=== PATIENT | female | born 1960 | race Caucasian/White ===

== ENCOUNTER 2020-11-11 10:35 | Inpatient (IN) | payer MEDICARE, SELFPAY ==
[2020-11-11] VITALS (11 sets, daily range): BP systolic 105–155; BP diastolic 51–96; PULSE 77–90; RESP 13–20; TEMP 36.7–37.1; O2SAT 97–100; BMI 28.1
--- NOTE | ~2020-11-11 | CT_ITS ---
EXAMINATION: CT brain wo con INDICATION: Unsteady gait COMPARISON: None TECHNIQUE: Standard unenhanced head CT. The dose-length product (DLP) was 605.33 mGy-cm. The mA was a djusted according to patient size. Iterative reconstruction technique was employed. FINDINGS: There is no intracranial hemorrhage, acute infarction, or abnormal mass lesion. The ventric les are normal. There is no abnormal mass effect or midline shift. The colmenares-white matter differentiat ion is normal. The basal cisterns are patent. Surgical changes noted in the superior aspect of the ri ght orbit. There is mild mucosal thickening of the paranasal sinuses. IMPRESSION: 1. No acute intracranial abnormality. Reviewed, dictated and finalized at location B.
--- NOTE | ~2020-11-11 | CT_ITS ---
EXAMINATION: CT diagnostic chest wo con EXAM DATE: 11/12/2020 17:27 INDICATION: Abnormal chest x-ray. Tumor of the breast. TECHNIQUE: Spiral CT of the chest without contrast. Axial, coronal and sagittal images of the chest were reviewed. Coronal maximum intensity pixel images of chest reviewed. The dose-length product ( DLP) for this examination was 179.63 mGy-cm. The exposure was tailored according to patient size (au to mA exposure control), and iterative reconstruction (ASIR) was used as additional dose reduction te chnique. Comparison is made to prior examination from 12/27/2015. FINDINGS: Patient's previously seen right-sided portacatheter has been removed. There is catheter fra gment in a right lower lobe anterior segmental pulmonary artery. Again there is biapical scarring and lobular pleural-based soft tissue extending from the left lung a pex anteriorly inferiorly. This was previously biopsied in 2016, correlate with histology. Appearance not significantly changed consistent with benign histology. There are no pleural or pericardial effusions. Tracheobronchial tree is patent. There is no media stinal, hilar or axillary lymphadenopathy. There is no pneumothorax. Heart normal in size. No e vidence of coronary arterial calcification. Upper abdomen is unremarkable. There is mild thoracic spondylosis without osteoblastic or osteolytic lesions identified. IMPRESSION: 1. Embolized catheter fragment in right lower lobe anterior segmental pulmonary artery. 2. Stable apical scarring, pleural-based opacities. Reviewed, dictated and finalized at location A. IMPRESSION: 1. Embolized catheter fragment in right lower lobe anterior segmental pulmonar y artery. 2. Stable apical scarring, pleural-based opacities.
--- NOTE | ~2020-11-11 | XR_ITS ---
EXAMINATION: XR chest 2V DATE: 11/11/2020 12:00 INDICATION: Weakness. Frequent falls. Difficulty walking. TECHNIQUE: frontal and lateral views of the chest were obtained. COMPARISON: Chest radiograph dated 01/21/2016 FINDINGS: The prior central venous port catheter is been removed. There is retained catheter fragment which is embolized into a likely right lower or middle lobar pulmonary artery. No focal airspace opacities, pu lmonary edema, pleural effusion or pneumothorax. The cardiomediastinal silhouette is normal. Moderate thoracic spondylosis. IMPRESSION: 1. Embolized catheter fragment within a pulmonary artery of the right lower or middle lobe. No other acute cardiopulmonary disease. Reviewed, dictated and finalized at location A.
--- NOTE | 2020-11-11 11:05 | ECG_ITS ---
Measurements Intervals [place] Rate: 79 P: 49 OK: 123 QRS: 5 QRSD: 96 T: 59 QT: 378 QTc: 434 Interpretive Statements SINUS RHYTHM BASELINE ARTIFACT- I, II, III, AVR, AVL, AVF, V1, V3-V6 NORMAL ECG Electronically Signed On 11-11-2020 11:31:28 CDT by Sunny Hunter D.O.
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
[2020-11-11 12:58] LABS: Basophils Percent Auto 0.9 % (0.2-1.2); Eosinophils Absolute Auto 0.2 K/mm3 (0-0.3); Hematocrit 35.6 % (37.0-47.0); Hemoglobin 11.4 g/dL (12.0-15.0); Immature Granulocyte Absolute 0.01 K/mm3 (0.00-0.031); Immature Granulocyte Percent A 0.2 % (0-0.5); Lymphocytes Absolute Auto 1.01 K/mm3 (0.9-3.2); Lymphocytes Percent Auto 23.7 % (18.3-44.2); Mean Corpuscular Volume 96.7 fl (80-100); Mean Platelet Volume 8.7 fl (7.4-10.4); Monocytes Absolute Auto 0.5 K/mm3 (0.1-0.6); Neutrophils Absolute Auto 2.6 K/mm3 (1.3-6.7); Neutrophils Percent Auto 60.2 % (45.5-73.1); Platelet Count Result 197 k/mm3 (150-375); Red Blood Count 3.68 M/mm3 (4.2-5.4); Red Cell Distribution Width 13.6 % (11.5-14.5); White Blood Count 4.3 K/mm3 (4.5-10.0)
[2020-11-11 13:00] LABS: Add Urine Microscopic? YES; Appearance Urine Clear (Clear); Bilirubin Urine Negative (Negative); Blood Urine 1+ (Negative); Color Urine Yellow (Yellow); Glucose Urine UA Negative (Negative); Ketones Urine Negative (Negative); Leukocyte Esterase Ur 1+ LEU/UL (Negative); Nitrate Urine Negative (Negative); Protein Urine Negative (Negative); Specific Grav Ur 1.012 (1.001-1.035); Squamous Epithelial Cell Urine Few /hpf (Few); Urobilinogen Urine Negative mg/dL (<2.0)
[2020-11-11 13:08] LABS: Prothrombin Time 13.4 Seconds (11.1-14.7)
[2020-11-11 13:09] LABS: Partial Thromboplastin Time 24.6 SECONDS (22.3-36.8)
[2020-11-11 13:20] LABS: Alanine Aminotransferase 12 U/L (4-35); Albumin Level 4.4 g/dL (3.5-5.1); Alkaline Phosphatase 123 U/L (38-126); Anion Gap 10 mmol/L (8-16); Aspartate Amino Transferase 22 U/L (14-36); Bilirubin,Total 0.3 mg/dL (0.2-1.3); Blood Urea Nitrogen 12 mg/dL (7-17); Calcium 9.1 mg/dL (8.4-10.2); Carbon Dioxide 28 mmol/L (22-30); Chloride 103 mmol/L (98-107); Estimated CRCL calculation 61 ml/min; Estimated Glomerular Filt Rate > 60; Glucose 85 mg/dL (65-105); Potassium 4.1 mmol/L (3.4-5.0); Sodium 141 mmol/L (137-145)
[2020-11-11 13:24] LABS: Phenytoin Dilantin 29 ug/mL (10-20)
[2020-11-11] MEDS: SODIUM CHLORIDE 0.9% IV 1,000 ML 999 ML IV CONT (14:13)
--- NOTE | 2020-11-11 16:05 | ADMGEN ---
This patient, Dion Duong, was admitted to [facility] Surg Room 316-01. Patient/family oriented to hospital policies and general routines including ID bracelet, bed and alarms, visiting hours, pain management, procedures, bathroom and other care routines, personal items, smoking policy, room service/diet, and visiting hours. Information on how to activate the Rapid Response Team has been discussed. Patient/Family are encouraged to report perceived risks to care and to ask questions if they do not understand what they are told or what they should do.
[2020-11-11] MEDS: SODIUM CHLORIDE 0.9% IV 1,000 ML 125 ML IV CONT (17:13)
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
[2020-11-12] VITALS (10 sets, daily range): BP systolic 129–141; BP diastolic 70–75; PULSE 77–98; RESP 17–20; TEMP 36.2–36.7; O2SAT 98–100
[2020-11-12] MEDS: SODIUM CHLORIDE 0.9% IV 1,000 ML 125 ML IV CONT ×2 (01:12→08:40)
[2020-11-12 06:23] LABS: Basophils Percent Auto 0.7 % (0.2-1.2); Eosinophils Absolute Auto 0.2 K/mm3 (0-0.3); Eosinophils Percent Auto 4.8 % (0-4.4); Hematocrit 33.5 % (37.0-47.0); Hemoglobin 10.9 g/dL (12.0-15.0); Immature Granulocyte Absolute 0.01 K/mm3 (0.00-0.031); Immature Granulocyte Percent A 0.2 % (0-0.5); Lymphocytes Absolute Auto 0.82 K/mm3 (0.9-3.2); Lymphocytes Percent Auto 18.6 % (18.3-44.2); Mean Corpuscular HGB Conc 32.5 g/dl (32-36); Mean Corpuscular Hemoglobin 31.5 pg (26-34); Mean Corpuscular Volume 96.8 fl (80-100); Mean Platelet Volume 8.7 fl (7.4-10.4); Monocytes Absolute Auto 0.5 K/mm3 (0.1-0.6); Monocytes Percent Auto 11.8 % (2.6-8.5); Neutrophils Absolute Auto 2.8 K/mm3 (1.3-6.7); Neutrophils Percent Auto 63.9 % (45.5-73.1); Platelet Count Result 171 k/mm3 (150-375); Red Blood Count 3.46 M/mm3 (4.2-5.4); Red Cell Distribution Width 13.6 % (11.5-14.5); White Blood Count 4.4 K/mm3 (4.5-10.0)
[2020-11-12 06:35] LABS: Anion Gap 7 mmol/L (8-16); Blood Urea Nitrogen 11 mg/dL (7-17); Calcium 8.6 mg/dL (8.4-10.2); Carbon Dioxide 26 mmol/L (22-30); Chloride 109 mmol/L (98-107); Estimated CRCL calculation 69 ml/min; Estimated Glomerular Filt Rate > 60; Glucose 83 mg/dL (65-105); Potassium 4.2 mmol/L (3.4-5.0); Sodium 142 mmol/L (137-145)
[2020-11-12] MEDS: ENOXAPARIN 40 MG/0.4 ML SYRINGE SUB-Q (08:40)
--- NOTE | 2020-11-12 14:49 | PM.IMPN ---
Progress Note: A&P Assessment and Plan (1) Dilantin toxicity: Code(s): T42.0X1A - Poisoning by hydantoin derivatives, accidental (unintentional), initial encounter Status: Acute Assessment and Plan: PATIENT IS PLACED IN OBSERVATION SUSPECT DILANTIN TOXICITY PATIENT HAS BEEN TAKING EXTRA DILANTIN WILL HOLD DILANTIN WILL OBTAIN DILANTIN LEVEL PT OT (2) Seizures: Code(s): R56.9 - Unspecified convulsions Status: Acute Assessment and Plan: HOLDING DILANTIN CONTINUE TO MONITOR (3) Anemia: Code(s): D64.9 - Anemia, unspecified Status: Acute Assessment and Plan: stable counts continue monitoring (4) Abnormal chest x-ray: Code(s): R93.89 - Abnormal findings on diagnostic imaging of other specified body structures Status: Acute Assessment and Plan: chest x-ray with retained catheter fragment which was embolized into a likely right lower middle lobar pulmonary artery. Incidental finding he does not have any symptoms related to this. Reviewed her older chest x-rays which sedated back from 2016 which is seen to have a port, the last 1 seeing a kink. I will get a CT chest diagnostic to further evaluate this. 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 She denies any shortness of breath or chest pain. No fevers chills. She has been having for the sensation in her head and has been falling. No nausea vomiting diarrhea abdominal pain. No loss of consciousness Review of Systems Review of Systems: Narrative: - CONSTITUTIONAL: Denies weight loss, fever and chills. - HEENT: Denies changes in vision and hearing - RESPIRATORY: Denies SOB and cough. - CV: Denies palpitations and CP. - GI: Denies abdominal pain, nausea, vomiting and diarrhea. - : Denies dysuria and urinary frequency. - MSK: Denies myalgia and joint pain. - SKIN: Denies rash and pruritus. - NEUROLOGICAL: Denies headache and syncope. reports dizziness and frequent falls - PSYCHIATRIC: Denies recent changes in mood. Denies anxiety and depression. All systems reviewed & are unremarkable except as noted in HPI and below Neurologic: Reports weakness Exam Narrative: Exam Narrative: Const: cooperative, comfortable, no acute distress, oriented x3 HENMT: Head: normal to inspection, normocephalic and atraumatic Eyes: General: dysmorphic ( RIGHT EYE PTOSIS) Neck: Neck: normal visual inspection, full ROM Resp: clear to auscultation bilaterally no respiratory distress Cardio: Jugular venous distension: no JVD Rate: regular rate Rhythm: regular rhythm Heart sounds: S1 normal heart sound present and S2 normal heart sound present GI: soft nondistended, nontender, no organomegaly Skin: Rashes: no rashes Wounds: no wounds Neuro: General: patient oriented x3 and CN's II-XI intact bilaterally Extrem: General: normal to inspection, full ROM, no joint enlargement and no pedal edema Objective Data Vital Signs Vital Signs: Vital Signs - 24 hr 11/11/20 15:46 11/11/20 16:30 11/11/20 16:39 Temperature 98.1 F Pulse Rate 82 81 86 Respiratory Rate 20 16 Blood Pressure 121/73 126/65 Pulse Oximetry 100 100 11/11/20 20:10 11/11/20 22:00 11/12/20 00:00 Temperature 98.2 F
[2020-11-13] VITALS (9 sets, daily range): BP systolic 113–136; BP diastolic 55–86; PULSE 75–81; RESP 16–20; TEMP 36.1–37.4; O2SAT 99–100
[2020-11-13] MEDS: ENOXAPARIN 40 MG/0.4 ML SYRINGE SUB-Q (08:24)
--- NOTE | 2020-11-13 12:24 | PM.DS ---
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 dilantin level on admission elecvated at 29. phentyoin held. labs all other unremarkable. she was taking extra dilantin since past few weeks. with phenytoin pharmacokinetics, will resrart phenytoin at her home dose 200 mg in am and 100 in the evening. monitor phentyoin level as opbasis. in 3 days then in 1 week after that. fu with PCP in 1 week. Disussed with sister who is in [place] in detail. will order PT/OT home health at [facility] and nursing to do the blood work as well. (2) Seizures: Code(s): R56.9 - Unspecified convulsions Status: Acute Assessment and Plan: HOLDING DILANTIN CONTINUE TO MONITOR resume dilantin at home dose, (3) Anemia: Code(s): D64.9 - Anemia, unspecified Status: Acute Assessment and Plan: stable counts continue monitoring (4) Abnormal chest x-ray: Code(s): R93.89 - Abnormal findings on diagnostic imaging of other specified body structures Status: Acute Assessment and Plan: chest x-ray with retained catheter fragment which was embolized into a likely right lower middle lobar pulmonary artery. Incidental finding he does not have any symptoms related to this. Reviewed her older chest x-rays which sedated back from 2016 which is seen to have a port, the last 1 seeing a kink. likely a chronic finding. ct chest done which showed the catheter in the right segmental pumonary artery. family is aware of this as well. will monitor and no intervention suggested as she is asymptomatic. (5) Hemiplegia affecting left nondominant side: Code(s): G81.94 - Hemiplegia, unspecified affecting left nondominant side Status: Acute Assessment and Plan: chronic no change. pt/ot to see as home based therapy as well. (6) Other senior living (current) drug therapy: Code(s): Z79.899 - Other buttermilk drier operator (current) drug therapy Status: Acute (7) Psoriasis: Code(s): L40.9 - Psoriasis, unspecified Status: Acute (8) History of breast cancer: Code(s): Z85.3 - Personal history of malignant neoplasm of breast Status: Acute Assessment and Plan: underwent chemo therapy in the past in remission Time Spent with Patient Time attestation: Total time spent providing and/or coordinating discharge services:50 mins Exam Narrative: Exam Narrative: Const: cooperative, comfortable, no acute distress, oriented x3 HENMT: Head: normal to inspection, normocephalic and atraumatic Eyes: General: dysmorphic ( RIGHT EYE PTOSIS) Neck: Neck: normal visual inspection, full ROM Resp: clear to auscultation bilaterally no respiratory distress Cardio: Jugular venous distension: no JVD Rate: regular rate Rhythm: regular rhythm Heart sounds: S1 normal heart sound present and S2 normal heart sound present GI: soft nondistended, nontender, no organomegaly Skin: Rashes: no rashes Wounds: no wounds Neuro: General: patient oriented x3 and CN's II-XI intact
[2020-11-13 12:39] LABS: Phenytoin Dilantin 23 ug/mL (10-20)
--- NOTE | 2020-11-13 15:17 | PM.IMPN ---
Progress Note: A&P Assessment and Plan (1) Abnormal chest x-ray: Code(s): R93.89 - Abnormal findings on diagnostic imaging of other specified body structures Status: Acute Assessment and Plan: chest x-ray with retained catheter fragment which was embolized into a likely right lower middle lobar pulmonary artery. Incidental finding he does not have any symptoms related to this. Reviewed her older chest x-rays which sedated back from 2016 which is seen to have a port, the last [address] chest done which confirmed the location discussed with the family which she states that this is been a chronic issue and had remained asymptomatic and hands left alone. (2) Anemia: Code(s): D64.9 - Anemia, unspecified Status: Acute Assessment and Plan: stable counts continue monitoring (3) Dilantin toxicity: Code(s): T42.0X1A - Poisoning by hydantoin derivatives, accidental (unintentional), initial encounter Status: Acute Assessment and Plan: PATIENT IS PLACED IN OBSERVATION SUSPECT DILANTIN TOXICITY PATIENT HAS BEEN TAKING EXTRA DILANTIN WILL HOLD DILANTIN WILL OBTAIN DILANTIN LEVEL PT OT Free Dilantin level still pending as it is a send out discuss with the lab this morning Will check a level of Dilantin today which came back still elevated at 23 will recheck the level in the morning tomorrow restart phenytoin when the level goes down to a therapeutic level Needs close monitoring of phenytoin level at the time of discharge and close follow-up with primary care Discussed this with her sister Chelo over the phone today. 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 Denies any issues overnight. He denies feeling any dizziness. She has been walking with therapy and doing well. no fever chills. Phenytoin level still elevated this afternoon. Review of Systems Review of Systems: All systems reviewed & are unremarkable except as noted in HPI and below Exam Narrative: Exam Narrative: Const: cooperative, comfortable, no acute distress, oriented x3 HENMT: Head: normal to inspection, normocephalic and atraumatic Eyes: General: dysmorphic ( RIGHT EYE PTOSIS) Neck: Neck: normal visual inspection, full ROM Resp: clear to auscultation bilaterally no respiratory distress Cardio: Jugular venous distension: no JVD Rate: regular rate Rhythm: regular rhythm Heart sounds: S1 normal heart sound present and S2 normal heart sound present GI: soft nondistended, nontender, no organomegaly Skin: Rashes: no rashes Wounds: no wounds Neuro: General: patient oriented x3 and CN's II-XI intact bilaterally Extrem: General: normal to inspection, full ROM, no joint enlargement and no pedal edema Objective Data Vital Signs Vital Signs: Vital Signs - 24 hr 11/12/20 16:00 11/12/20 20:00 11/12/20 22:00 Temperature 97.2 F L Pulse Rate 81 80 80 Respiratory Rate 18 18 Blood Pressure 129/70 Pulse Oximetry 98 98 11/13/20 00:00 11/13/20 04:00 11/13/20 05:45 Temperature 97.1 F L Pulse Rate 76 76 76 Respiratory Rate 18 Blood Pressure 120/55 L Pulse Oximetry 99 11/13/20 08:00 Temperature Pulse Rate 75 Respiratory Rate Blood Pressure Pulse Oximetry Intake/Output Intake/Output: Intake & Output 11/10/20 11/11/20 11/12/20 11/13/20 23:59 23:59 23:59 23:59 Intake Total 1680 4010 240 Balance 1680 4010 240 Meds/Results Medications: Active Medications Generic Name Dose Route Start Last Admin Trade Name Freq PRN Reason Stop Dose Admin Enoxaparin Sodium 40 mg 11/12/20 09:00 11/13/20 08:24 Enoxaparin 40 Mg/0.4 Ml Sy
[2020-11-14] VITALS: PULSE 84
[2020-11-14 04:00] VITALS: PULSE 90
[2020-11-14 04:57] VITALS: BP 131/69; PULSE 86; RESP 16; TEMP 36.1; O2SAT 100
[2020-11-14 08:00] VITALS: PULSE 77
[2020-11-14] MEDS: ENOXAPARIN 40 MG/0.4 ML SYRINGE SUB-Q (08:32)
[2020-11-14 08:36] LABS: Alanine Aminotransferase 11 U/L (4-35); Alkaline Phosphatase 111 U/L (38-126); Anion Gap 7 mmol/L (8-16); Aspartate Amino Transferase 20 U/L (14-36); Bilirubin,Total 0.3 mg/dL (0.2-1.3); Blood Urea Nitrogen 13 mg/dL (7-17); Calcium 9.2 mg/dL (8.4-10.2); Carbon Dioxide 26 mmol/L (22-30); Chloride 108 mmol/L (98-107); Estimated CRCL calculation 69 ml/min; Estimated Glomerular Filt Rate > 60; Glucose 82 mg/dL (65-105); Sodium 141 mmol/L (137-145)
[2020-11-14 08:37] LABS: Phenytoin Dilantin 18 ug/mL (10-20)
[2020-11-14 10:03] LABS: Basophils Percent Auto 0.9 % (0.2-1.2); Eosinophils Absolute Auto 0.3 K/mm3 (0-0.3); Eosinophils Percent Auto 7.4 % (0-4.4); Hematocrit 36.9 % (37.0-47.0); Hemoglobin 11.7 g/dL (12.0-15.0); Immature Granulocyte Absolute 0.01 K/mm3 (0.00-0.031); Immature Granulocyte Percent A 0.3 % (0-0.5); Lymphocytes Absolute Auto 0.94 K/mm3 (0.9-3.2); Mean Corpuscular HGB Conc 31.7 g/dl (32-36); Mean Corpuscular Hemoglobin 31.1 pg (26-34); Mean Corpuscular Volume 98.1 fl (80-100); Monocytes Absolute Auto 0.4 K/mm3 (0.1-0.6); Neutrophils Absolute Auto 1.8 K/mm3 (1.3-6.7); Neutrophils Percent Auto 52.4 % (45.5-73.1); Platelet Count Result 201 k/mm3 (150-375); Red Blood Count 3.76 M/mm3 (4.2-5.4); Red Cell Distribution Width 13.5 % (11.5-14.5); White Blood Count 3.4 K/mm3 (4.5-10.0)
[2020-11-14 11:07] LABS: Phenytoin Dilantin Free 2.7 mg/L (1.0-2.0)
== END 2020-11-14 14:50 | disposition home health service (06) | DRG 918 ==
LOC: ANHED 11:14 → ANH3MEDSUR 14:38
PROVIDERS: Internal Medicine; Admitting Provider Family Medicine; Emergency Provider General Practice; PCP Internal Medicine; Visit Provider Internal Medicine
DX: T42.0X1A Poisoning by hydantoin derivatives, accidental (unintentional), initial encounter (principal); G81.94 Hemiplegia, unspecified affecting left nondominant side; G40.89 Other seizures; Z87.820 Personal history of traumatic brain injury; D64.9 Anemia, unspecified; L40.9 Psoriasis, unspecified; Z79.899 Other long term (current) drug therapy; Z85.3 Personal history of malignant neoplasm of breast; Z87.891 Personal history of nicotine dependence; R93.89 Abnormal findings on diagnostic imaging of other specified body structures
CPT/HCPCS: 36415; 70450; 71046; 71250; 80048; 80053; 80185; 80186; 81001; 85025; 85610; 85730; 93005; 96360; 96361; 96372; 97110; 97116; 97161; 97165; 97535; 99285; G0378; J1650; J7030

== ENCOUNTER 2020-12-16 09:51 | Outpatient (CLI) | payer MEDICARE, SELFPAY ==
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
== END 2020-12-16 09:52 | disposition home or self-care (01) ==
PROVIDERS: PCP Internal Medicine; Visit Provider Psychiatry & Neurology Neurology
DX: R56.9 Unspecified convulsions (principal); G93.0 Cerebral cysts; G31.89 Other specified degenerative diseases of nervous system
CPT/HCPCS: 70551

== ENCOUNTER 2021-04-16 10:02 | Outpatient (CLI) | payer MEDICARE, SELFPAY ==
--- NOTE | ~2021-04-16 | XR_ITS ---
XR knee RT 3V 04/16/2021 10:47 Indication: Right knee instability Procedure: 3 views right knee Comparison: 03/02/2011 Findings: There is moderate tricompartment osteoarthritis of the right knee. No acute fracture, sublu xation or dislocation. Small joint effusion. No foreign bodies. Impression: 1: Moderate tricompartment osteoarthritis of the right knee. Reviewed, dictated and finalized at location B. PHONE SUPERVISOR Impression: 1: Moderate tricompartment osteoarthritis of the right knee.
== END 2021-04-16 10:03 | disposition home or self-care (01) ==
PROVIDERS: PCP Internal Medicine; Visit Provider Nurse Practitioner
DX: M17.11 Unilateral primary osteoarthritis, right knee (principal)
CPT/HCPCS: 73562

== ENCOUNTER 2025-01-24 13:50 | Outpatient (CLI) | payer MEDICARE, SELFPAY ==
--- OUTSIDE RECORDS SUMMARY | 2025-01-24 13:30 | XMS_ITS | Encounter Summary ---
Author Organization [facility] ARVIN Baltazar [facility] Address [address] [place] [address] Care Team Providers Care Grounds Manager Name Role Phone Roddy Chong DO Primary Care Provider [phone] Reason for Referral * Radiology Services (Routine) - Authorized Specialty Diagnoses / Procedures Referred By Mariela carbajal Referred To Contact Diagnoses History of left breast cancer Encounter for screening mammogram for malignant neoplasm of breast Procedures MAMMO 3D JEFFERSON SCREEN BILAT W OR WO CAD CHG SCREENING MAMMOGRAPHY BI 2-VIEW BREAST INC CAD CHG SCREENING DIGITAL BREAST TOMOSYNTHESIS BI Yolie Lipscomb MD [address] [place] [phone] Phone: tel: fax: Referral ID Status Reason Start Date Expiration Date Visits Requested Visits Authorized [id number] Authorized CRS to Schedule 01/24/2025 02/24/2026 1 1 * Radiology Services (Routine) - Authorized Specialty Diagnoses / Procedures Referred By Mariela carbajal Referred To Contact Diagnoses History of left breast cancer Osteopenia of multiple sites Procedures XR DEXA BONE DENSITY AXIAL 1 OR MORE SITES Yolie Lipscomb MD [address] [place] [phone] Phone: tel: fax: Referral ID Status Reason Start Date Expiration Date Visits Requested Visits Authorized [id number] Authorized CRS to Schedule 01/24/2025 02/24/2026 1 1 Encounter Details Date Type Department Care Team (Late st Contact Info) Description 01/24/2025 1:30 PM CDT Office Visit [facility] [address] [place] [address] Yolie Lipscomb MD [address] [place] [address] History of left breast cancer (Primary Dx); Osteopenia of multiple sites; Neoplasm of left breast, regional lymph node staging category pN0 per [place] Joint Committee on Cancer Staging Guidelines, 7th edition (CMS/HCC); Encounter for screening mammogram for malignant neoplasm of breast Social History Tobacco Use Types Packs/Day Years Used Date Smoking Tobacco: Former Cigarettes 1 30 0 01/24/1985 - 01/24/2015 Smokeless Tobacco: Never Alcohol Use Standard Drinks/Week Comments Never 0 (1 standard drink = 0.6 oz pur e alcohol) Comments Unknown Sex and Gender Information Value Date Recorded Sex Assigned at Not on file Legal Sex Female 3:25 PM CDT Gender Identity Not on file Sexual Orientation Not on file documented as of this encounter Last Filed Vital Signs Vital Sign Reading Time Taken Comments Blood Pressure 145/81 01/24/2025 1:05 PM CDT Pulse 81 01/24/2025 1:05 PM CDT Temperature 36.2 C (97.2 F) 01/24/2025 1:05 PM CDT Respiratory Rate 16 01/24/2025 1:05 PM CDT Oxygen Saturation 96% 01/24/2025 1:05 PM CDT Inhaled Oxygen Concentration - - Weight 76.2 kg (168 lb) 01/24/2025 1:05 PM CDT Height 157.5 cm (5' 2) 01/24/2025 1:05 PM CDT Body Mass Index 30.73 01/24/2025 1:05 PM CDT documented in this encounter Plan of Treatment Upcoming Encounters Date Type Department Care Team (Late st Contact Info) Description 03/07/2025 4:30 PM CDT Office Visit [facility] Oncology and Hematology [place] [address] [place] [address] Klaus Colón MD [address] [facility] [address] [place] [address] Scheduled Orders Name Type Priority Associated Diagnoses Orde r Schedule CBC WITH DIFFERENTIAL Lab Stat History of left breast cancer Expected: 01/24/2025, Expires: 01/24/2026 COMPREHENSIVE METABOLIC PANEL Lab Stat History of left breast cancer Expected: 01/24/2025, Expires: 01/24/2026 CANCER ANTIGEN 15-3 Lab Routine History of left breast cancer Expected: 01/24/2025, Expires: 01/24/2026 XR DEXA BONE DENSITY AXIAL 1 OR MORE SITES Imaging Routine History of left breast cancer Osteopenia of multiple sites Expected: 01/24/2025, Expires: 01/24/2026 MAMMO 3D JEFFERSON SCREEN BILAT W OR WO CAD Imaging Routine History of left breast cancer Encounter for screening mammogram for malignant neoplasm of breast Expected: 01/24/2025, Expires: 07/24/2026 documented as of this encounter Visit Diagnoses Diagnosis History of left breast cancer- Primary Osteopenia of multiple sites Neoplasm of left breast, regional lymph node staging category pN0 per [place] Joint Committee on Cancer Staging Guidelines, 7th edition (CMS/HCC) Encounter for screening mammogram for malignant neoplasm of breast Other screening mammogram documented in this encounter Care Teams Grounds Manager Relationship Specialty Start Date End Date Roddy Chong DO [address] [facility] [address] [place] [address] PCP - General Internal Medicine 01/24/25 documented as of this encounter
[2025-01-24 14:12] LABS: Hematocrit 36.6 % (37.0-47.0); Hemoglobin 11.7 g/dL (12.0-15.0); Immature Granulocyte Percent A 0.0 % (0-0.5); Lymphocytes Absolute Auto 1.08 K/mm3 (0.9-3.2); Mean Corpuscular HGB Conc 32.0 g/dl (32-36); Mean Corpuscular Hemoglobin 32.5 pg (26-34); Mean Corpuscular Volume 101.7 fl (80-100); Nucleated Red Blood Cells Absolute Auto 0.000 K/mm3 (0.0-0.012); Nucleated Red Blood Cells Perc 0.0 % (0.0-0.2); Platelet Count Result 193 k/mm3 (150-375); Red Blood Count 3.60 M/mm3 (4.2-5.4); White Blood Count 4.0 K/mm3 (4.5-10.0)
--- OUTSIDE RECORDS SUMMARY | 2025-01-24 14:28 | XMS_ITS | Clinical Summary ---
Author Organization [facility] Tristian solano Angie Address [address] [place] [address] Care Team Providers Care Burglar Alarm Mechanic Name Role Phone Roddy Chong DO Primary Care Provider [phone] Allergies No known active allergies Medications atorvastatin (LIPITOR) 10 mg tablet Take 10 mg by mouth daily at bedtime. 12/24/2024 Active folic acid (FOLVITE) 1 mg tablet Take 1 Tablet by mouth daily. 12/07/2024 Active letrozole (FEMARA) 2.5 mg tablet Take 1 Tablet by mouth daily. 12/28/2024 Active methotrexate (RHEUMATREX) 2.5 mg Tablet Take 2.5 mg by mouth. 01/22/2025 Active levETIRAcetam (KEPPRA) 750 mg Tablet Take 750 mg by mouth 2 times daily. Active multivitamin (DAILY-JOSELYN) tablet Take 1 Tablet by mouth daily. Active lysine (L-Lysine) 500 mg tablet Take 1,000 mg by mouth daily. Active CALCIUM CARBONATE ORAL Take by mouth. Active letrozole (FEMARA) 2.5 mg tablet Take 1 Tablet (2.5 mg) by mouth daily. 90 Tablet 3 01/24/2025 Active Active Problems Problem Noted Date Diagnosed Date Osteopenia of multiple sites 01/24/2025 History of left breast cancer 01/24/2025 Neoplasm of left breast, reg ional lymph node staging category pN0 per [place] Joint Committee on Cancer Staging Guidelines, 7th edition 01/24/2025 Encounters Date Type Department Care Team Description 01/24/2025 1:30 PM CDT Office Visit [facility] Oncology and Hematology - [place] [address] [place] [address] Yolie Lipscomb MD History of left breast cancer (Primary Dx); Osteopenia of multiple sites; Neoplasm of left breast, regional lymph node staging category pN0 per [place] Joint Committee on Cancer Staging Guidelines, 7th edition (CMS/HCC); Encounter for screening mammogram for malignant neoplasm of breast 12/12/2024 External Device Data STL ABSTRACTION Provider, Abstract 12/12/2024 External Device Data STL ABSTRACTION Provider, Abstract 12/12/2024 External Device Data STL ABSTRACTION Provider, Abstract 12/05/2024 Telephone [facility] Oncology and [facility] [address] [place] [address] Klaus Colón MD Medication Questions from Last 3 Months Social History Tobacco Use Types Packs/Day Years [...] on file Sexual Orientation Not on file Last Filed Vital Signs Vital Sign Reading [...] Mass Index 30.73 01/24/2025 1:05 PM CDT Plan of Treatment Upcoming Encounters Date Type Department Care Team (Late st Contact Info) Description 03/07/2025 4:30 PM CDT Office Visit [facility] Oncology and Hematology [facility] [address] [place] [address] Klaus Colón MD [address] [facility] [address] [place] [address] Health Maintenance Due Date Last Done Comments DTAP/TDAP/TD VACCINES (1 - Tdap) 1981 HPV/Cotest (21-29) 1983 CERVICAL CANCER SCREENING 1992 HPV/Cotest (30-65) 1992 PAP SMEAR 1992 BREAST CANCER SCREENING 2002 COLORECTAL SCREENING 2007 Colorectal Cancer Screening 2007 FIT-DNA Q 3 years 2007 FIT/FOBT Q 1 year 2007 Flex Sig/CT Colonography Q 5 years 2007 ZOSTER VACCINE (1 of 2) 2012 [place] Preventative Visit/Annual Wellness Visit 05/17/2024 INFLUENZA VACCINE (#1) 2024 8, 02/27/2017, 03/27/2016, Additional history exists RSV VACCINE (60+ or ) (1 - 1-dose 75+ series) 2037 Insurance Care Teams Burglar Alarm Mechanic Relationship Specialty Start Date End Date Roddy Chong DO [address] [facility] [address] [place] [address] PCP - General Internal Medicine 01/24/25
[2025-01-24 16:39] LABS: Alanine Aminotransferase 19 U/L (6-35); Albumin Level 4.3 g/dL (3.5-5.1); Alkaline Phosphatase 76 U/L (38-126); Anion Gap 8 mmol/L (4-12); Aspartate Amino Transferase 31 U/L (14-36); Bilirubin,Total 0.5 mg/dL (0.2-1.3); Blood Urea Nitrogen 16 mg/dL (7-17); Calcium 9.4 mg/dL (8.4-10.2); Carbon Dioxide 28 mmol/L (22-30); Chloride 103 mmol/L (98-107); Estimated Glomerular Filt Rate > 60; Glucose 84 mg/dL (65-110); Potassium 4.3 mmol/L (3.4-5.0); Sodium 139 mmol/L (137-145); Total Protein 7.3 g/dL (6.3-8.2)
== END 2025-01-24 13:51 | disposition home or self-care (01) ==
PROVIDERS: PCP Nurse Practitioner; Visit Provider Internal Medicine Hematology & Oncology
DX: Z85.3 Personal history of malignant neoplasm of breast (principal)
CPT/HCPCS: 36415; 80053; 85025; 86300